=== PATIENT | female | born 1955 | race African-American/Black ===

== ENCOUNTER 2019-08-13 15:03 | Inpatient (IN) ==
[2019-08-13] MEDS ORDERED: ACETAMINOPHEN 325 MG TABLET PO PRN (16:53)
[2019-08-13 17:46] LABS: Basophils % 0.5 % (0.0-0.8); Eosinophils % 0.4 % (0.00-10.9); Hematocrit 40.1 VOL% (35.7-47.0); Hemoglobin 13.1 GM/DL (12.0-16.0); Immature Granulocytes % 0.5 %; Immature Granulocytes Absolute 0.04 #; Lymphocytes # 1.1 10*3/uL (1.4-4.0); Lymphocytes % 14.4 % (21.3-54.2); Mean Corpuscular HGB Conc 32.7 GM/DL (32-36); Mean Corpuscular Volume 87.7 FL (87-102); Neutrophils % 75.2 % (38.7-73.9); Platelet Count 276 T/CUMM (130-400); Red Blood Count 4.57 MC/CUMM (3.8-5.5); Red Cell Distribution Width 16.1 % (9.3-17.3); White Blood Count 7.9 T/CUMM (4-12)
[2019-08-13 18:18] LABS: Calcium 8.6 MG/DL (8.5-10.1); Osmolality,Calculated 273.2 MOS/KG (273-304); Total Protein 7.5 G/DL (6.4-8.3)
[2019-08-13] MEDS: ENOXAPARIN 150 MG/ML SYRINGE SUBCUT SCH (18:35)
[2019-08-13] MEDS ORDERED: MAGNESIUM SULF RIDER 4 GM in PREMIX 1 EACH IV PRN (18:42)
[2019-08-13] MEDS: INSULIN REGULAR 100 UNIT/ML SUBCUT SCH (21:30)
[2019-08-13] MEDS: POTASSIUM CHLORIDE RIDER 10 MEQ in PREMIX 1 EACH IV PRN ×2 (21:43→23:02)
[2019-08-13] MEDS: MAGNESIUM SULF RIDER 2 GM in PREMIX 1 EACH IV PRN (22:56)
[2019-08-14] MEDS: POTASSIUM CHLORIDE RIDER 10 MEQ in PREMIX 1 EACH IV PRN ×3 (00:21→02:46)
[2019-08-14] MEDS: MAGNESIUM SULF RIDER 2 GM in PREMIX 1 EACH IV PRN (01:34)
[2019-08-14 03:07] LABS: Basophils % 0.5 % (0.0-0.8); Eosinophils # 0.1 10*3/uL (0.0-0.87); Eosinophils % 0.8 % (0.00-10.9); Hematocrit 37.3 VOL% (35.7-47.0); Hemoglobin 12.1 GM/DL (12.0-16.0); Immature Granulocytes % 0.4 %; Immature Granulocytes Absolute 0.03 #; Lymphocytes # 1.5 10*3/uL (1.4-4.0); Lymphocytes % 20.7 % (21.3-54.2); Mean Corpuscular HGB Conc 32.4 GM/DL (32-36); Mean Corpuscular Volume 87.8 FL (87-102); Mean Platelet Volume 11.7 FL (9.6-12.0); Monocytes % 10.5 % (1.7-12.7); Neutrophils % 67.1 % (38.7-73.9); Platelet Count 235 T/CUMM (130-400); Red Blood Count 4.25 MC/CUMM (3.8-5.5); Red Cell Distribution Width 16.5 % (9.3-17.3); White Blood Count 7.4 T/CUMM (4-12)
[2019-08-14 03:42] LABS: Albumin 2.9 G/DL (3.4-5.0); Bilirubin,Total 11.4 MG/DL (0.2-1.0); Calcium 8.5 MG/DL (8.5-10.1); Osmolality,Calculated 273.2 MOS/KG (273-304); Risk Ratio 18.14; Thyroid Stimulating Hormone 1.14 uIU/ml (0.358-3.74); Total Protein 7.1 G/DL (6.4-8.3)
[2019-08-14] MEDS: ENOXAPARIN 150 MG/ML SYRINGE SUBCUT SCH (06:02)
[2019-08-14] MEDS ORDERED: COLCHICINE 0.6 MG CAPSULE PO PRN (07:44)
[2019-08-14] MEDS: POTASSIUM CHLORIDE 20 MEQ TABLET PO PRN ×4 (08:04→17:18)
[2019-08-14] MEDS ORDERED: traMADol 50 MG TABLET PO PRN (08:04)
[2019-08-14] MEDS: INSULIN REGULAR 100 UNIT/ML SUBCUT SCH ×4 (08:45→22:30)
[2019-08-14] MEDS: PANTOPRAZOLE 40 MG TABLET PO SCH (08:47)
[2019-08-14] MEDS: allopurinoL 300 MG TABLET PO SCH (08:47)
[2019-08-14] MEDS: LISINOPRIL/HCTZ 20-25 MG TABLET PO SCH (08:47)
[2019-08-14] MEDS: DICYCLOMINE 20 MG TABLET PO SCH (08:47)
[2019-08-14] MEDS: SODIUM CHLOR 0.45% KCL 20 MEQ 20 MEQ/1,000 ML BAG IV SCH (08:54)
[2019-08-14] MEDS ORDERED: amLODIPine 10 MG TABLET PO SCH (09:00)
[2019-08-14] MEDS ORDERED: SIMVASTATIN 20 MG TABLET PO SCH (09:00)
[2019-08-14] MEDS ORDERED: GLUCAGON 1 MG VIAL IM PRN (10:39)
[2019-08-14] MEDS ORDERED: DEXTROSE 10% 25 GM/250 ML BAG IV PRN (10:39)
[2019-08-14] MEDS ORDERED: MORPHINE 4 MG/1 ML VIAL IV ONE (11:40)
[2019-08-14] MEDS ORDERED: ENOXAPARIN 150 MG/ML SYRINGE SUBCUT SCH (20:00)
[2019-08-14] MEDS: amLODIPine 10 MG TABLET PO SCH (21:04)
[2019-08-14] MEDS: ursodioL 300 MG CAPSULE PO SCH (21:04)
[2019-08-14] MEDS: DOCUSATE SODIUM 100 MG CAPSULE PO SCH (21:04)
[2019-08-14] MEDS: MORPHINE 4 MG/1 ML VIAL IV PRN (21:07)
[2019-08-15] MEDS: SODIUM CHLOR 0.45% KCL 20 MEQ 20 MEQ/1,000 ML BAG IV SCH ×2 (04:06→23:57)
[2019-08-15 05:01] LABS: Basophils % 0.6 % (0.0-0.8); Eosinophils % 0.6 % (0.00-10.9); Hematocrit 37.1 VOL% (35.7-47.0); Hemoglobin 12.3 GM/DL (12.0-16.0); Immature Granulocytes % 0.2 %; Immature Granulocytes Absolute 0.01 #; Lymphocytes # 1.3 10*3/uL (1.4-4.0); Lymphocytes % 20.2 % (21.3-54.2); Mean Corpuscular HGB Conc 33.2 GM/DL (32-36); Mean Corpuscular Volume 86.3 FL (87-102); Mean Platelet Volume 11.3 FL (9.6-12.0); Neutrophils % 67.4 % (38.7-73.9); Platelet Count 260 T/CUMM (130-400); Red Cell Distribution Width 16.8 % (9.3-17.3); White Blood Count 6.4 T/CUMM (4-12)
[2019-08-15 05:15] LABS: Albumin 2.9 G/DL (3.4-5.0); Calcium 8.8 MG/DL (8.5-10.1); Osmolality,Calculated 277.7 MOS/KG (273-304); Total Protein 7.3 G/DL (6.4-8.3)
[2019-08-15 05:36] LABS: Bilirubin,Total 13.6 MG/DL (0.2-1.0)
[2019-08-15] MEDS: INSULIN REGULAR 100 UNIT/ML SUBCUT SCH ×4 (08:37→20:25)
[2019-08-15] MEDS: DICYCLOMINE 20 MG TABLET PO SCH (08:57)
[2019-08-15] MEDS: ursodioL 300 MG CAPSULE PO SCH ×2 (08:57→20:25)
[2019-08-15] MEDS: DOCUSATE SODIUM 100 MG CAPSULE PO SCH ×2 (08:58→20:25)
[2019-08-15] MEDS: POLYETHYLENE GLYCOL POWDER 17 GM PACK PO SCH (08:59)
[2019-08-15] MEDS: LISINOPRIL/HCTZ 20-25 MG TABLET PO SCH (08:59)
[2019-08-15] MEDS: PANTOPRAZOLE 40 MG TABLET PO SCH (08:59)
[2019-08-15] MEDS: allopurinoL 300 MG TABLET PO SCH (09:00)
[2019-08-15] MEDS: MORPHINE 4 MG/1 ML VIAL IV PRN ×4 (09:18→23:23)
[2019-08-15] MEDS: POTASSIUM CHLORIDE 20 MEQ TABLET PO PRN ×3 (09:19→14:30)
[2019-08-15] MEDS: HEPARIN DRIP 25,000 UNITS/500 ML PREMIX IV SCH ×2 (09:20→20:24)
[2019-08-15] MEDS: amLODIPine 10 MG TABLET PO SCH (20:25)
[2019-08-16 05:42] LABS: Basophils % 0.4 % (0.0-0.8); Eosinophils # 0.1 10*3/uL (0.0-0.87); Eosinophils % 1.1 % (0.00-10.9); Hematocrit 36.9 VOL% (35.7-47.0); Hemoglobin 12.3 GM/DL (12.0-16.0); Immature Granulocytes % 1.2 %; Immature Granulocytes Absolute 0.09 #; Lymphocytes # 1.7 10*3/uL (1.4-4.0); Lymphocytes % 23.3 % (21.3-54.2); Mean Corpuscular HGB Conc 33.3 GM/DL (32-36); Mean Corpuscular Volume 85.2 FL (87-102); Mean Platelet Volume 11.1 FL (9.6-12.0); Monocytes % 11.6 % (1.7-12.7); Neutrophils % 62.4 % (38.7-73.9); Platelet Count 252 T/CUMM (130-400); Red Blood Count 4.33 MC/CUMM (3.8-5.5); Red Cell Distribution Width 17.2 % (9.3-17.3); White Blood Count 7.3 T/CUMM (4-12)
[2019-08-16 05:57] LABS: INR 1.1; PT Patient Result 11.4 SECS (9.6-12.2)
[2019-08-16 06:10] LABS: Albumin 2.6 G/DL (3.4-5.0); Calcium 8.8 MG/DL (8.5-10.1); Osmolality,Calculated 268.2 MOS/KG (273-304)
[2019-08-16 06:17] LABS: Bilirubin,Total 13.8 MG/DL (0.2-1.0)
[2019-08-16] MEDS ORDERED: INDOMETHACIN SUPP 50 MG SUPP RECTAL ONE ×2 (06:58→08:00)
[2019-08-16] MEDS ORDERED: LACTATED RINGERS 1,000 ML IV SCH (08:00)
[2019-08-16] MEDS: DOCUSATE SODIUM 100 MG CAPSULE PO SCH ×2 (08:07→21:21)
[2019-08-16] MEDS: POLYETHYLENE GLYCOL POWDER 17 GM PACK PO SCH (08:07)
[2019-08-16] MEDS: ursodioL 300 MG CAPSULE PO SCH ×2 (08:07→21:21)
[2019-08-16] MEDS: INSULIN REGULAR 100 UNIT/ML SUBCUT SCH ×4 (08:07→21:22)
[2019-08-16] MEDS: DICYCLOMINE 20 MG TABLET PO SCH (08:07)
[2019-08-16] MEDS: LISINOPRIL/HCTZ 20-25 MG TABLET PO SCH (08:08)
[2019-08-16] MEDS: PANTOPRAZOLE 40 MG TABLET PO SCH (08:08)
[2019-08-16] MEDS: allopurinoL 300 MG TABLET PO SCH (08:08)
[2019-08-16] MEDS: ONDANSETRON 4 MG/2 ML VIAL IV PRN ×2 (08:53→14:59)
[2019-08-16] MEDS: MORPHINE 4 MG/1 ML VIAL IV PRN ×2 (08:53→22:09)
[2019-08-16] MEDS: HEPARIN DRIP 25,000 UNITS/500 ML PREMIX IV SCH ×2 (08:56→22:08)
[2019-08-16] MEDS ORDERED: SUGAMMADEX 200 MG/2 ML VIAL IV ONE (13:37)
[2019-08-16] MEDS ORDERED: fentaNYL 100 MCG/2 ML VIAL ONE (13:54)
[2019-08-16] MEDS ORDERED: SEVOFLURANE 1 UNIT/15 MINUTE INH ONE (13:54)
[2019-08-16] MEDS ORDERED: LIDOCAINE 2% 5 ML VIAL ONE (13:54)
[2019-08-16] MEDS ORDERED: ROCURONIUM 100 MG/10 ML VIAL IV ONE (13:55)
[2019-08-16] MEDS ORDERED: ONDANSETRON 4 MG/2 ML VIAL ONE (13:55)
[2019-08-16] MEDS ORDERED: propofoL 200 MG/20 ML VIAL IV ONE (13:55)
[2019-08-16] MEDS: amLODIPine 10 MG TABLET PO SCH (21:21)
[2019-08-17 03:05] LABS: Basophils % 0.2 % (0.0-0.8); Eosinophils # 0.1 10*3/uL (0.0-0.87); Eosinophils % 0.8 % (0.00-10.9); Hematocrit 36.6 VOL% (35.7-47.0); Hemoglobin 12.1 GM/DL (12.0-16.0); Immature Granulocytes % 0.6 %; Immature Granulocytes Absolute 0.05 #; Lymphocytes % 24.2 % (21.3-54.2); Mean Corpuscular HGB Conc 33.1 GM/DL (32-36); Mean Corpuscular Volume 85.7 FL (87-102); Mean Platelet Volume 11.2 FL (9.6-12.0); Monocytes % 10.2 % (1.7-12.7); Platelet Count 280 T/CUMM (130-400); Red Blood Count 4.27 MC/CUMM (3.8-5.5); Red Cell Distribution Width 17.7 % (9.3-17.3); White Blood Count 8.3 T/CUMM (4-12)
[2019-08-17 03:27] LABS: Albumin 2.5 G/DL (3.4-5.0); Calcium 8.6 MG/DL (8.5-10.1); Osmolality,Calculated 273.1 MOS/KG (273-304)
[2019-08-17 03:31] LABS: Bilirubin,Total 14.5 MG/DL (0.2-1.0)
[2019-08-17] MEDS: MORPHINE 4 MG/1 ML VIAL IV PRN ×4 (04:59→20:59)
[2019-08-17] MEDS: INSULIN REGULAR 100 UNIT/ML SUBCUT SCH ×4 (08:56→20:58)
[2019-08-17] MEDS: DICYCLOMINE 20 MG TABLET PO SCH (08:58)
[2019-08-17] MEDS: LISINOPRIL/HCTZ 20-25 MG TABLET PO SCH (08:58)
[2019-08-17] MEDS: allopurinoL 300 MG TABLET PO SCH (08:58)
[2019-08-17] MEDS: ursodioL 300 MG CAPSULE PO SCH ×2 (08:58→20:58)
[2019-08-17] MEDS: POLYETHYLENE GLYCOL POWDER 17 GM PACK PO SCH (08:58)
[2019-08-17] MEDS: DOCUSATE SODIUM 100 MG CAPSULE PO SCH ×2 (08:58→20:58)
[2019-08-17] MEDS ORDERED: GRANISETRON 1 MG/1 ML VIAL IV SCH (09:30)
[2019-08-17] MEDS ORDERED: RIVAROXABAN 10 MG TABLET PO SCH (09:30)
[2019-08-17] MEDS ORDERED: DEXAMETHASONE INJ 10 MG in SODIUM CHLORIDE 0.9% 50 ML IV ONE ×2 (09:30)
[2019-08-17] MEDS ORDERED: CISplatin 50 MG in SODIUM CHLORIDE 0.9% 500 ML IV ONE (10:00)
[2019-08-17] MEDS ORDERED: SODIUM CHLORIDE 0.9% IV ONE ×2 (10:00→11:30)
[2019-08-17] MEDS ORDERED: GEMCITABINE IV ONE ×2 (10:00→11:30)
[2019-08-17] MEDS: SODIUM CHLOR 0.45% KCL 20 MEQ 20 MEQ/1,000 ML BAG IV SCH ×2 (11:11→16:40)
[2019-08-17] MEDS: HEPARIN DRIP 25,000 UNITS/500 ML PREMIX IV SCH (11:12)
[2019-08-17] MEDS: PANTOPRAZOLE 40 MG TABLET PO SCH (11:19)
[2019-08-17] MEDS ORDERED: diphenhydrAMINE CAP 25 MG CAPSULE ONE (11:36)
[2019-08-17] MEDS: RIVAROXABAN 10 MG TABLET PO SCH (14:27)
[2019-08-17] MEDS: amLODIPine 10 MG TABLET PO SCH (20:58)
[2019-08-18] MEDS: MORPHINE 4 MG/1 ML VIAL IV PRN ×3 (02:40→12:44)
[2019-08-18 05:30] LABS: Albumin 2.7 G/DL (3.4-5.0); Osmolality,Calculated 274.1 MOS/KG (273-304); Total Protein 7.4 G/DL (6.4-8.3)
[2019-08-18] MEDS: DICYCLOMINE 20 MG TABLET PO SCH (10:18)
[2019-08-18] MEDS: allopurinoL 300 MG TABLET PO SCH (10:18)
[2019-08-18] MEDS: LISINOPRIL/HCTZ 20-25 MG TABLET PO SCH (10:18)
[2019-08-18] MEDS: POLYETHYLENE GLYCOL POWDER 17 GM PACK PO SCH (10:19)
[2019-08-18] MEDS: ursodioL 300 MG CAPSULE PO SCH (10:19)
[2019-08-18] MEDS: PANTOPRAZOLE 40 MG TABLET PO SCH (10:19)
[2019-08-18] MEDS: DOCUSATE SODIUM 100 MG CAPSULE PO SCH (10:19)
[2019-08-18] MEDS: INSULIN REGULAR 100 UNIT/ML SUBCUT SCH ×2 (11:41→14:25)
[2019-08-18] MEDS: RIVAROXABAN 10 MG TABLET PO SCH (12:31)
[2019-08-18 13:18] VITALS: BP 131/76
[2019-08-18] MEDS: SODIUM CHLOR 0.45% KCL 20 MEQ 20 MEQ/1,000 ML BAG IV SCH (14:26)
== END 2019-08-18 13:05 | disposition home or self-care (01) | DRG 281 ==
LOC: N.4E → OBSVTOIN 15:18 → SUATTDRO 15:18
PROVIDERS: ADMIT Internal Medicine; ATTEND Internal Medicine